=== PATIENT | female | born 1955 | race Caucasian/White ===

== ENCOUNTER 2016-12-20 13:29 | Observation (INO) ==
[2016-12-20] MEDS ORDERED: NS 1,000 ML IV ONE (14:07)
[2016-12-20] MEDS ORDERED: ZOFRAN IV ONE (14:07)
--- NOTE | 2016-12-20 14:34 | Diag Imaging Result Doc PS360 ---
EXAM: CHEST-PORTABLE HISTORY: AMS TECHNIQUE: AP upright portable at 1429 COMMENT: The inspiration is somewhat suboptimal. There is no evidence of acute cardiac or pulmonary disease, and considering the degree of inspiration there is been no significant change since 02/12/2013. IMPRESSION: No acute disease. Electronically signed by Jason Brown 12/20/2016 2:32 PM
[2016-12-20 14:51] LABS: BASO% 0.2 % (0.0-0.8); EOS# 0.03 X1000 (0.0-0.7); EOS% 0.2 % (0.0-10.0); HEMATOCRIT 39.8 % (37.0-47.0); HEMOGLOBIN 13.4 g/dL (12.0-16.0); IMM GRAN# 0.05 X1000 (0.0-0.04); IMM GRAN% 0.3 % (0.0-0.5); LYMPH# 3.68 X1000 (1.2-3.4); LYMPH% 23.5 % (20.5-51.1); MANUAL DIFF NEEDED? NO; MCH 32.4 PG (27-31); MCHC 33.7 g/dL (33-37); MCV 96.4 FL (81-99); MONO# 1.18 X1000 (0.11-0.59); MONO% 7.5 % (1.7-9.3); MPV 8.6 FL (7.4-10.4); NEUT% 68.3 % (42.2-75.2); PLT 443 X1000 (130-400); RBC 4.13 XMIL (4.2-5.4)
[2016-12-20] MEDS ORDERED: ATIVAN IV ONE (14:54)
--- NOTE | 2016-12-20 14:55 | Diag Imaging Result Doc PS360 ---
EXAM: HEAD W/O CONTRAST - 12/20/2016 HISTORY: AMS TECHNIQUE: Dose reduction protocol COMPARISON: 07/21/2015 FINDINGS: There are mild chronic microvascular ischemic changes. There is no evidence of recent infarct, although acute infarcts may not be immediately visible. There is no evidence of intracranial hemorrhage, mass effect, midline shift, or hydrocephalus. There is mild prominence of the occipital horn of the left lateral ventricle which is stable and compatible with chronic change. IMPRESSION: No visible acute intracranial abnormality. No hemorrhage or mass effect. Electronically signed by Tino Nobles 12/20/2016 2:53 PM
[2016-12-20 15:20] LABS: CALCIUM 9.1 mg/dL (8.8-10.2); MAGNESIUM 2.5 mg/dL (1.5-2.7); POTASSIUM 3.5 mmol/L (3.5-5.1); TOTAL BILIRUBIN 0.3 mg/dL (0.20-1.00); TOTAL PROTEIN 7.3 g/dL (6.3-8.3)
[2016-12-20 15:42] LABS: URINE CULTURE NEEDED? NO; URINE MICRO REVIEW NEEDED? NO; URINE SOURCE CATH
[2016-12-20 15:45] LABS: BILIRUBIN URINE SMALL (NEGATIVE); BLOOD URINE NEGATIVE (NEGATIVE); COLOR YELLOW; GLUCOSE URINE NEGATIVE (NEGATIVE); LEUKOCYTES URINE NEGATIVE (NEGATIVE); NITRITE URINE NEGATIVE (NEGATIVE); PH URINE 5.5; PROTEIN URINE 30 mg/dL (NEGATIVE); SP GRAVITY URINE 1.038; TURBIDITY URINE CLEAR (CLEAR); UR EPITHELIAL CELLS <10 /HPF (<10); URINE BACTERIA NEGATIVE /HPF; URINE RBC <10 /HPF (<10); URINE WBC <10 /HPF (<10); UROBILINOGEN URINE 2 mg/dL (NORMAL)
[2016-12-20 15:54] LABS: UR AMPHETAMINES QUAL NONE DETECTED (NONE DETECT); UR BARBITUATES QUAL NONE DETECTED (NONE DETECT); UR BENZODIAZEPIN QUAL NONE DETECTED (NONE DETECT); UR CANNABINOIDS QUAL NONE DETECTED (NONE DETECT); UR COCAINE QUAL NONE DETECTED (NONE DETECT); UR METHADONE QUAL NONE DETECTED (NONE DETECT); UR OPIATES QUAL NONE DETECTED (NONE DETECT); UR OXYCODONE QUAL NONE DETECTED (NONE DETECT); UR PCP QUAL NONE DETECTED (NONE DETECT)
--- NOTE | 2016-12-20 15:54 | EKG Report ---
Test Performed on : 12/20/2016 2:23:23 PM Test Reason : AMS Blood Pressure : / mmHG Vent. Rate : 071 BPM Atrial Rate : 071 BPM P-R Int : 142 ms QRS Dur : 088 ms QT Int : 442 ms P-R-T Axes : 004 -22 044 degrees QTc Int : 480 ms Normal sinus rhythm. Voltage criteria for left ventricular hypertrophy Abnormal ECG No previous ECGs available Unconfirmed Result
--- NOTE | 2016-12-20 15:57 | ED EKG INTERP ---
This chart was entered by Sheyla Harp Scribe, acting as scribe for Delia Guevara MD. EKG Interpretation - EKG Time of EKG reading by physician:: 14:23 EKG Read and Signed by:: Delia Guevara EKG Interpretation (*Must complete 3 of following elements*): Abnormal Rate: 71 Rhythm: nsr [place]: normal QRS: other (voltage criteria for left ventricular hypertrophy) [place] Interval: normal ST Wave: normal This chart was documented by the indicated scribe, (Sheyla Harp Scribe) and accurately reflects the services I performed and decisions made by Ismael holcomb Wenli X, MD, as attested by the provider's signature.
--- NOTE | 2016-12-20 15:59 | PROVIDER DOCUMENTATION ---
This chart was entered by Sheyla Harp Scribe, acting as scribe for Delia Guevara MD. HPI-Female /OB/Breast - General Chief Complaint: Breast Pain Stated Complaint: BREAST PAIN, NOT EATING Time Seen by Provider: 12/20/16 13:48 Source: reports: patient, family Allergies/Adverse Reactions: Patient Allergies Allergy/AdvReac Type Severity Reaction Status Date / Time codeine Allergy HIVES Verified 12/20/16 14:37 Home Medications: Home Medication List Medication Instructions Recorded Confirmed Last Taken Type LISINOpril [Prinivil] 10 mg PO DAILY 02/10/12 07/26/13 07/25/13 21:00 History Alprazolam [Xanax] 0.5 mg PO BID 06/27/13 07/26/13 07/26/13 21:00 History Liraglutide [Victoza] 0.6 mg SUBQ DAILY 06/27/13 07/26/13 07/26/13 07:00 History Ezetimibe [Zetia] 10 mg PO DAILY 07/24/13 07/26/13 07/25/13 07:00 History Gabapentin 300 mg PO HS 07/24/13 07/26/13 07/25/13 21:00 History Amoxicillin/Pot Clavulanate 875 mg PO Q12HR #20 tablet 07/26/13 Unknown Rx [Augmentin] Aspirin 81 mg PO DAILY 07/26/13 07/26/13 07/26/13 07:00 History Cetirizine HCl [Zyrtec] 10 mg PO DAILY #0 tablet 07/26/13 Unknown Rx Fluticasone 50 Mcg Nasal [place] 1 spray CHOCO BID #0 bottle 07/26/13 Unknown Rx [Flonase] Omeprazole [Prilosec] 20 mg PO DAILY@0700 07/26/13 07/26/13 07/26/13 07:00 History Tramadol [Ultram] 50 mg PO BID 07/26/13 07/26/13 07/24/13 History Metronidazole [Flagyl] 500 mg PO TID #56 tablet 01/10/14 Unknown Rx Sulfamethoxazole/Tmp D.s. [Septra 1 each PO BID #28 tablet 01/10/14 Unknown Rx Ds] - History of Present Illness-Female /OB Nature of Presenting Problem: 61 y/o F presents to ED cc of breast pain x 2 days ago. Pt had epsiode of same pain in the past and was told to wear a bra. Pain went away when bra was on. Pt recently stopped wearing bra. Pt is at bedside and also reports having no appetite x 4 days now. states pt stopped xanax x 1 year ago and since mental status has decreased. Pt is no longer coherent and states they have seen serval doctors with no answer. Pt is alert. No abd pain. Does patient report she is ?: No Location of complaint: reports: other (bilat breast) Radiation: reports: none Quality of Pain: reports: aching Severity in ED: reports: mild Onset/Duration: reports: just prior to arrival Timing: reports: still present Context/Activities at Onset: reports: light activity Vaginal Symptoms: reports: no symptoms Vaginal Bleeding Amount: None Urinary Symptoms: reports: no symptoms. denies: dribbling, frequency, hematuria , nocturia, polyuria, urgency Related Symptoms: reports: no symptoms Leakage of Fluid: none Modifying Factors: improves with: nothing Associated Symptoms: reports: chest pain (bilat breast), nausea, vomiting, other (loss of apptite). denies: diarrhea, fatigue, syncope Similar Symptoms Previously?: Yes Recently seen or treated by another doctor?: Yes Review of Systems - Adult - REVIEW OF SYSTEMS - ADULT Constitutional: denies: chills, fever Eyes: denies: blurred vision, double vision Ears, Nose, Mouth & Throat: denies: ear pain, nose pain, loose teeth, throat pain Cardiovascular: reports: other (bialt breast pain). denies: chest pain, irregular heart rate, palpitations Respiratory: denies: cough, pleurisy, shortness of breath, wheezing Gastrointestinal: reports: nausea, vomiting. denies: abdominal pain, diarrhea Genitourinary: denies: discharge, frequency, hesitency, incontinence Musculoskeletal: denies: bone pain, back pain, joint swelling, muscle aches Neurological: reports: other (AMS). denies: dizziness/vertigo, headache/ migraines, seizure Past History - Adult - PAST MEDICAL HISTORY-ADULT Review of Records: reports: Old Records Reviewed, Nursing Assessment Review Major Childhood Illnesses: reports: history unknown Cardiovascular: reports: HTN Respiratory: reports: denies history Gastrointestinal: reports: denies history Obstetrical/Gynecological: reports: denies history Genitourinary: reports: denies history Musculoskeletal: reports: chronic pain (back) Neurological: reports: denies history Psychiatric: reports: denies history Endocrine/Immune: reports: Diabetes Other Conditions: reports: denies history - PRIOR SURGERIES/PROCEDURES Surgical/Procedure History: reports: cholecystectomy - PRIOR HOSPITALIZATIONS Prior Hospitalizations: reports: none - IMMUNIZATION STATUS Childhood Immunizations: See Nurse Assessment Flu Vaccine: See Nurse Assessment - FAMILY HISTORY Family History: reviewed, not pertinent - SOCIAL HISTORY Smoking: quit greater than 1 year Substance Use: none/never, denies Physical Exam-General - PHYSICAL EXAM-ADULT Initial Vital Signs Reviewed: Yes - CONSTITUTIONAL General Appearance: appears well, alert - EYES Eyes: pink conjunctivae - HEAD, EARS, NOSE, MOUTH & THROAT HENMT: normocephalic/atraumatic, moist mucous membranes, normal ENT inspection - NECK Neck: non-tender - RESPIRATORY Respiratory: chest non-tender, lungs clear, normal breath sounds - CARDIOVASCULAR Cardiovascular: normal peripheral pulses, regular rate, rhythm - GASTROINTESTINAL (ABDOMEN) Abdominal Exam: normal bowel sounds, non tender, soft. negative: distended, guarding, rigid, rebound, tenderness - MUSCULOSKELETAL Back Exam: normal inspection, no CVA tenderness, no vertebral tenderness Extremity: normal range of motion, non-tender, normal gait - SKIN Integumentary: normal color, normal turgor, warm/dry - NEUROLOGIC Neurologic: grossly normal, no motor/sensory deficits - PSYCHIATRIC Psych/Mental Status: other (incoherently talking/ recognize person but unsure of where) Progress - PLAN OF CARE/RESULTS Progress/Plan/Lab Results: Vital Signs - 8 hr 12/20/16 13:32 Temperature 98.2 F Pulse Rate 88 Respiratory Rate 20 Blood Pressure 120/67 O2 Sat by Pulse Oximetry 100 Laboratory Results - last 24 hr 12/20/16 12/20/16 12/20/16 14:30 14:30 14:30 WBC RBC Hgb Hct MCV MCH MCHC RDW Std Deviation Plt Count MPV Immature Gran % (Auto) Neut % (Auto) Lymph % (Auto) [place] % (Auto) Eos % (Auto) Baso % (Auto) Immature Gran # (Auto) Neut # (Auto) Lymph # (Auto) [place] # (Auto) Eos # (Auto) Baso # (Auto) D-Dimer 2.19 H Sodium 137 Potassium 3.5 Chloride 101 Carbon Dioxide 17 L Anion Gap 19 BUN 54 H Creatinine 1.5 H Estimated GFR/1.73 m2 35 BUN/Creatinine Ratio 36 Glucose 121 H Calculated Osmolality 290 Calcium 9.1 Magnesium 2.5 Total Bilirubin 0.30 AST 14 ALT 23 Alkaline Phosphatase 53 Creatine Kinase 91 Troponin T Total Protein 7.3 Albumin 4.0 Globulin 3.3 Albumin/Globulin Ratio 1.2 Plasma Lactate Urine Source Urine Color Urine Turbidity Urine pH Ur Specific [place] Urine Protein Ur Glucose (Stick) Ur Ketones (Stick) Urine Blood Urine Nitrite Urine Bilirubin Urobilinogen Dipstick Urine Leukocytes Urine WBC (Auto) Urine RBC (Auto) U Epithel Cells (Auto) Urine Bacteria (Auto) Urine Opiates Screen Ur Oxycodone Screen Ur Methadone, Qual Ur Barbiturates Screen Ur Phencyclidine Scrn Ur Amphetamines Screen U Benzodiazepines Scrn Urine Cocaine Screen U Cannabinoids Screen Plasma/Serum Ethyl Alc 12/20/16 12/20/16 12/20/16 14:30 14:30 14:35 WBC 15.68 H RBC 4.13 L Hgb 13.4 Hct 39.8 MCV 96.4 MCH 32.4 H MCHC 33.7 RDW Std Deviation 13.8 Plt Count 443 H MPV 8.6 Immature Gran % (Auto) 0.3 Neut % (Auto) 68.3 Lymph % (Auto) 23.5 [place] % (Auto) 7.5 Eos % (Auto) 0.2 Baso % (Auto) 0.2 Immature Gran # (Auto) 0.05 H Neut # (Auto) 10.71 H Lymph # (Auto) 3.68 H [place] # (Auto) 1.18 H Eos # (Auto) 0.03 Baso # (Auto) 0.03 D-Dimer Sodium Potassium Chloride Carbon Dioxide Anion Gap BUN Creatinine Estimated GFR/1.73 m2 BUN/Creatinine Ratio Glucose Calculated Osmolality Calcium Magnesium Total Bilirubin AST ALT Alkaline Phosphatase Creatine Kinase Troponin T < 0.010 Total Protein Albumin Globulin Albumin/Globulin Ratio Plasma Lactate 1.1 Urine Source Urine Color Urine Turbidity Urine pH Ur Specific [place] Urine Protein Ur Glucose (Stick) Ur Ketones (Stick) Urine Blood Urine Nitrite Urine Bilirubin Urobilinogen Dipstick Urine Leukocytes Urine WBC (Auto) Urine RBC (Auto) U Epithel Cells (Auto) Urine Bacteria (Auto) Urine Opiates Screen Ur Oxycodone Screen Ur Methadone, Qual Ur Barbiturates Screen Ur Phencyclidine Scrn Ur Amphetamines Screen U Benzodiazepines Scrn Urine Cocaine Screen U Cannabinoids Screen Plasma/Serum Ethyl Alc 12/20/16 12/20/16 15:30 15:30 WBC RBC Hgb Hct MCV MCH MCHC RDW Std Deviation Plt Count MPV Immature Gran % (Auto) Neut % (Auto) Lymph % (Auto) [place] % (Auto) Eos % (Auto) Baso % (Auto) Immature Gran # (Auto) Neut # (Auto) Lymph # (Auto) [place] # (Auto) Eos # (Auto) Baso # (Auto) D-Dimer Sodium Potassium Chloride Carbon Dioxide Anion Gap BUN Creatinine Estimated GFR/1.73 m2 BUN/Creatinine Ratio Glucose Calculated Osmolality Calcium Magnesium Total Bilirubin AST ALT Alkaline Phosphatase Creatine Kinase Troponin T Total Protein Albumin Globulin Albumin/Globulin Ratio Plasma Lactate Urine Source CATH Urine Color YELLOW Urine Turbidity CLEAR Urine pH 5.5 Ur Specific [place] 1.038 Urine Protein 30 A Ur Glucose (Stick) NEGATIVE Ur Ketones (Stick) TRACE A Urine Blood NEGATIVE Urine Nitrite NEGATIVE Urine Bilirubin SMALL A Urobilinogen Dipstick 2 A Urine Leukocytes NEGATIVE Urine WBC (Auto) <10 Urine RBC (Auto) <10 U Epithel Cells (Auto) <10 Urine Bacteria (Auto) NEGATIVE Urine Opiates Screen NONE DETECTED Ur Oxycodone Screen NONE DETECTED Ur Methadone, Qual NONE DETECTED Ur Barbiturates Screen NONE DETECTED Ur Phencyclidine Scrn NONE DETECTED Ur Amphetamines Screen NONE DETECTED U Benzodiazepines Scrn NONE DETECTED Urine Cocaine Screen NONE DETECTED U Cannabinoids Screen NONE DETECTED Plasma/Serum Ethyl Alc Orders Category Date Time Status Cardiac Monitoring DIRECTED Care 12/20/16 14:07 Active Finger Stick Blood Sugar (ED) DIRECTED Care 12/20/16 14:07 Active Saline Loc NOW Care 12/20/16 14:07 Active CHEST-PORTABLE [RAD] Stat Exams 12/20/16 14:07 Completed HEAD W/O CONTRAST [CT] Stat Exams 12/20/16 14:07 Completed LUNG SCAN / VQ [NM] Stat Exams 12/20/16 15:30 Ordered ALCOHOL BLOOD Stat Lab 12/20/16 14:30 Completed CBC WITH ELECTRONIC DIFF [HEME] Stat Lab 12/20/16 14:35 Completed CK PROFILE [SP CHEM] Stat Lab 12/20/16 14:30 Completed COMPREHENSIVE METABOLIC PANEL [CHEM] Stat Lab 12/20/16 14:30 Completed D-DIMER [CHEM] Stat Lab 12/20/16 14:30 Completed LACTATE, PLASMA [CHEM] Stat Lab 12/20/16 14:30 Completed MAGNESIUM [CHEM] Stat Lab 12/20/16 14:30 Completed PROTIME WITH INR [COAG] Stat Lab 12/20/16 14:35 Ordered PTT [COAG] Stat Lab 12/20/16 14:35 Ordered TROPONIN T Stat Lab 12/20/16 14:30 Completed URINALYSIS W/POSS RFLX CULT-1 [URINALYSIS] Stat Lab 12/20/16 15:30 Completed URINE DRUG SCREEN Stat Lab 12/20/16 15:30 Completed 0.9% Sodium Chloride Inj [Ns] 1,000 ml Med 12/20/16 14:07 Discontinued IV 999 mls/hr Lorazepam [Ativan] Med 12/20/16 14:54 Discontinued 1 mg IV NOW ONE Ondansetron [Zofran] Med 12/20/16 14:07 Discontinued 4 mg IV NOW ONE Pulse Oximetry Stat Oth 12/20/16 14:07 Active EKG [EKG] Stat Ther 12/20/16 14:07 Draft US [Venous U/S Bilateral Legs] Stat Ther 12/20/16 15:30 Ordered Result Diagrams: 12/20/16 14:35 12/20/16 14:30 - REASSESSMENT Reassessment #1 Time Reassessed: 15:58 Status: unchanged - CONSULTS/PCP/HOSPITALIST Notification #1 *Consult/PCP/Hospitalist*: Roman/Dr. Lucero Time Discussed: 15:58 Consult Disposition: Will see in ED, Admit Departure - Departure Date of Disposition Decision: 12/20/16 Time of Disposition Decision: 15:58 DIAGNOSIS: Chest pain, Altered mental status Disposition: ADMITTED INPATIENT 09 Certified Medical Emergency: Emergent Condition: Stable Referrals and Follow-Ups: Ekta Leonard CRNP [Primary Care Provider] - - Critical Care Note This patient required my direct & personal management of CC.: No This chart was documented by the indicated scribe, (Sheyla Harp Scribe) and accurately reflects the services I performed and decisions made by me, Delia Guevara MD, as attested by the provider's signature.
[2016-12-20] MEDS ORDERED: HALDOL IV ONE (16:43)
[2016-12-20] MEDS ORDERED: HALDOL ONE (16:45)
[2016-12-20] MEDS ORDERED: ZOFRAN IV PRN (16:56)
[2016-12-20] MEDS ORDERED: NS 1,000 ML IV SCH (16:56)
[2016-12-20] MEDS: ATIVAN IV PRN ×2 (17:08→20:45)
[2016-12-20 17:31] LABS: ALLEN TEST YES; BE -9.9 mmoll (-3.0-3.0); BLOOD TYPE ARTERIAL; DRAW SITE R RADIAL; METHB 0.7 % (0.0-1.5); O2(CT) 15.9 mL/dL (15.0-23.0); PCO2(98.6) 29 mmHg (35-45); PO2(98.6) 81 mmHg (60-100); SAMPLE BLOOD; SAO2 99.6 % (95.0-100.0); THB 11.7 g/dL (11.5-17.4); pH(98.6) 7.32 (7.35-7.45)
[2016-12-20] MEDS: NS 1,000 ML IV SCH ×2 (18:00→23:00)
[2016-12-20 18:35] LABS: ACETAMINOPHEN < 1.2 ug/mL (10-30)
[2016-12-20 19:09] LABS: ACETONE SERUM NEGATIVE (NEGATIVE)
[2016-12-20 19:11] LABS: INR 1.11; PROTIME 11.7 Seconds (9.2-11.7); PTT 28.8 Seconds (22.0-36.0)
[2016-12-21 02:50] LABS: UR CREAT RANDOM 107.3 mg/dL (11-20)
--- NOTE | 2016-12-21 04:06 | HISTORY AND PHYSICAL ---
PCP: Ekta Leonard. CHIEF COMPLAINT: Breast pain. HISTORY OF PRESENT ILLNESS: Ms. Dave is a 61-year-old female with a history of lower chronic back pain on narcotic therapy and hypertension. Patient is unable to give history at this time secondary to her neurologic status. at the bedside is able to answer questions. He reports that she has had a decline in mental status over the past year, and has seen multiple providers, including Neurology in [facility], who have yet to establish a diagnosis for her altered mental status. Patient becomes quite confused and agitated at times. The reports that over the past 4 days, she has not been eating, and brought her in the hospital for that. Apparently, per hospital records, she was also complaining of breast pain, but this is unable to be very verified at this time because the patient is quite agitated, requiring restraints. When we walked into the room, she began pulling out her IV, and stating that she was leaving, but the patient was completely disoriented, unable to give us her name, where she was, the year, or the context of why she was here, she just kept screaming "let me go". A head CT was done in the ER, and it did not show anything acute. Her laboratory data shows leukocytosis, renal insufficiency. A D-dimer of 2.19, and elevated metabolic anion gap acidosis. Toxicology screen is negative. She is now going to be admitted for acute delirium. PAST MEDICAL HISTORY: 1. Mental status decline of unknown origin. 2. Chronic back pain, on narcotic therapy. 3. Questionable narcotic abuse. states that she has been over using her pain medication, and then has abruptly stopped. She was also taking off Xanax abruptly around 1 year ago. 4. Hypertension. PAST SURGICAL HISTORY: Cholecystectomy, partial colectomy secondary to hemorrhoids. SOCIAL HISTORY: The patient quit smoking multiple years ago. There is a question narcotic dependence. reports she does not drink. She is , is at the bedside. FAMILY HISTORY: Noncontributory. REVIEW OF SYSTEMS: Unable to obtain. ALLERGIES: Codeine. HOME MEDICATIONS: Currently being compiled. PHYSICAL EXAMINATION: VITAL SIGNS: Blood pressure is 128/59, heart rate 70, respiratory rate 20, O2 saturation 99% on room air. Temperature is 98.5 degrees. GENERAL: This is a disheveled and acutely delirious 61-year-old female, lying in hospital bed, in soft wrist restraints, in an agitated state. NEUROLOGIC: The patient will not answer questions or follow commands. She is quite agitated. She moves all extremities well. HEENT: Head is atraumatic and normocephalic. Her pupils are equal, round, and reactive to light. Oral mucosa is a bit dry. Trachea is midline. CHEST: Clear to auscultation bilaterally. CV: Regular rate and rhythm. S1-S2 is noted. No murmurs. GI: Soft, nondistended, nontender. Bowel sounds positive. EXTREMITIES: Without edema, clubbing, or cyanosis. Pulses palpable bilaterally. DIAGNOSTIC DATA: Head CT, negative. Chest x-ray does not show anything acute. Lab data: Toxicology screen is negative. WBC 15.6, hemoglobin 13.4, hematocrit 39.8, platelet count is 443. D-dimer 2.19. ABG on room air pH 7..32, CO2 29, O2 81, bicarb 17.2, sodium 137 , potassium 3.5, chloride 101, CO2 17. Anion gap 19. BUN 54, creatinine 1.5, glucose 121. Calcium 9.1, magnesium 2.5. LFTs within normal limits. Ammonia 22. Troponin negative. Albumin 4.0. Lactate 1.1. UA shows 30 protein, trace ketones, small bilirubin, but no infection. ASSESSMENT AND PLAN: 1. Acute delirium: Etiology unclear. Head CT is negative. Toxicology screen is negative. There does not seem to be any nidus of infection, although she does have a white count. Certainly, acute narcotic withdrawal would be on the differential, given the fact that she was abusing, then abruptly stopped. We have consulted Neurology and we will check an MRI in the morning if she is able to lie still. We will also check thyroid function. 2. Leukocytosis: Unclear of the significance. There does not seem to be any nidus of infection. She is not tachycardic or febrile. We will hydrate her and check blood cultures, sputum cultures, and urine cultures. No need for antibiotics at this time. If her acute confusion and delirium continues, we may request a lumbar tap to rule out meningeal infection. 3. Elevated D-dimer. Ventilation/perfusion scan and lower extremity venous Dopplers have been ordered. 4. Metabolic acidosis, high anion gap. We will need to look into this. We have ordered standard labs including acetaminophen, salicylate, and ketone levels. Lactic acid is within normal limits, and she does not have an osmolar gap, which would rule out any alcohol intoxication. She does have some mild renal insufficiency, so we will give her some fluid hydration. 5. Renal insufficiency. We are going to check urine studies. On review of her past creatinines, this seems to be her baseline. We will also check a renal ultrasound in the morning. If no improvement or renal function declines, would consider Renal consultation. 6. Reports of breast pain: A ventilation/perfusion scan has been ordered to rule out pulmonary embolism, and we will continue to trend enzymes. 7. Deep venous thrombosis prophylaxis with Lovenox. 8. Further recommendations to follow. Dictated by YNES Frank for Héctor Jacques MD cc: YNES Frank MD Juliana Cr[facility]
[2016-12-21 05:58] LABS: HEMATOCRIT 35.1 % (37.0-47.0); HEMOGLOBIN 11.4 g/dL (12.0-16.0); MCH 32.5 PG (27-31); MCHC 32.5 g/dL (33-37); MPV 8.4 FL (7.4-10.4); RBC 3.51 XMIL (4.2-5.4)
[2016-12-21 06:19] LABS: POTASSIUM 3.8 mmol/L (3.5-5.1)
[2016-12-21] MEDS: NS 1,000 ML IV SCH (06:47)
--- NOTE | 2016-12-21 08:06 | Diag Imaging Result Doc PS360 ---
EXAM: LUNG SCAN / VQ INDICATION: CP with elevated D-dimer TECHNIQUE: 42.4 mCi of aerosolized technetium 99 DTPA was administered for the ventilation portion of the scan. 5.1 mCi of IV technetium 99 MAA was administered for the perfusion portion of the scan. COMPARISON: None. FINDINGS: There is a small amount of swallowed radiotracer in the lumen of the stomach. No matched or unmatched perfusion defects are appreciated. The ventilation portion of the scan is grossly unremarkable. IMPRESSION: Negative VQ scan. Electronically signed by Zay Weston 12/21/2016 8:04 AM
--- NOTE | 2016-12-21 08:58 | Diag Imaging Result Doc PS360 ---
EXAM: MRI BRAIN W W/O CONTRAST HISTORY: ams TECHNIQUE: Axial, sagittal, and coronal images obtained in multiple sequences. There is quite a bit of motion on the post contrasted axial and coronal images. COMPARISON: None. FINDINGS: No recent infarct. There are minimal microvascular ischemic changes. No hydrocephalus. No mass or midline shift. No enhancing lesion on the post contrasted images. No epidural or subdural fluid collection. There is a small amount of fluid in the right mastoid sinus. No sinus opacification and no air-fluid levels. IMPRESSION: No recent infarct or mass. Electronically signed by Alvin Heck 12/21/2016 8:55 AM
[2016-12-21] MEDS ORDERED: LOVENOX SUBQ SCH (09:00)
[2016-12-21] MEDS: ATIVAN IV PRN (09:24)
[2016-12-21] MEDS ORDERED: 1/2 NS 1,000 ML IV SCH (09:35)
--- NOTE | 2016-12-21 10:20 | Diag Imaging Result Doc PS360 ---
EXAM: US RENAL 2 (RETROPER) COMPLETE HISTORY: renal insufficiency TECHNIQUE: COMPARISON: None. FINDINGS: The right kidney measures 11.2 x 4.6 x 4.7 cm. Normal renal echotexture and cortical thickness. No stone or hydronephrosis. No renal mass. The urinary bladder is distended and appears normal. The left kidney measures 11.7 x 5.3 x 5.7 cm. Normal renal echotexture and cortical thickness. No renal stones or hydronephrosis. No renal mass. IMPRESSION: Normal renal ultrasound. Electronically signed by Alvin Heck 12/21/2016 10:18 AM
[2016-12-21 11:12] VITALS: BP 135/61
--- NOTE | 2016-12-21 16:03 | CONSULTATION ---
DATE OF CONSULTATION: 12/21/2016 Ms. Dave is 61 years old with longstanding dementia. She was admitted yesterday with reported increased delirium. Family reports today that she seemed more withdrawn, not speaking, not eating for the last few days prior to admission. Family noticed some forgetfulness as long as 4 years ago. I initially saw her fifteen months ago. She was clearly demented. She was started on donepezil and tolerated donepezil titration to 10 mg daily. I last saw her eleven months ago and donepezil dose was intended to be increased to 23 mg daily then. I have not heard anything from family since then. at the bedside now is certain she is continuing donepezil as I had prescribed it, but I believe the prescription I prescribed would have before now. says he supervises all medicines but he cannot name them. He reports he has a list at home but he does not have a list here. The hospital record indicates there has been some uncertainty about her medicines. says she stopped the alprazolam abruptly a year or so ago and that she continues off of that. He is certain she has not had other benzodiazepine medicines until this admission. However, he reports there was addition of "nerve pill" which he cannot name a few months ago. Tramadol was also listed in the hospital record but he says she has not had that in a long time. She currently has hydrocodone/ acetaminophen 7.5/325, and she takes one of those 3 times a day every day, supervised by . She has pain clinic followup in [place]. There may be an antidepressant medicine, but he cannot name that. He reports she was advised to stop taking her medicine for blood sugar control. There is no history of recent serious head injury. She has never had diagnosed stroke. She has never used ethanol. Workup this admission includes noncontrast CT showing left posterior horn of the lateral ventricle is more prominent than the right, but that is a chronic finding, unchanged compared to previous scan. Brain MRI this admission is reported to show minimal white matter changes , but nothing focal or acute. Her urine drug screen was all negative this admission, showing no evidence of opiate or of benzodiazepine. Labs showed BUN 54 this admission. Computer record shows BUN ranged from 10-23 over the last year and a half. PHYSICAL EXAMINATION: Vital Signs: Vital signs records show she has been afebrile. Systolic blood pressures have ranged from 110s to 130s. General Appearance: On examination now, she is awake and alert. She seems attentive. She followed some simple commands. She did not follow commands requiring right/left distinction or digit distinction. She had a little bit of speech, which I could understand. She appears cheerful and in no discomfort. Head and neck: Are unremarkable. I could not lye boiler visual field formally, but she did blink with approaching threat from the left and from the right. Extraocular movements are full with spontaneous left and right gaze. Tone is equal in the limbs. She used each limb purposefully. Plantar response is silent bilaterally. Reflexes are absent at the ankles bilaterally. I did not test her gait. She was not attentive to usual sensory testing. IMPRESSION: Global encephalopathy, baseline dementia, recent withdrawn state according to family, declining to talk and declining to eat. I do not have any urgent neurologic suggestion. If we can confirm that she is taking donepezil, we can continue that. Consider adding memantadine and follow as an outpatient. Depending on her other current medications, we might start or change antidepressant medicine. We might consider adding low-dose neuroleptic to see if that helps with her behavior. Again, I do not know what has been her management in the last 11 months and I am not certain about her current home medicines. Thanks for asking me to see Ms. Dave. I will be glad to see her again inpatient or outpatient if needed. cc: Peyton Aguilar III, MD MTDD
--- NOTE | 2016-12-22 14:57 | DISCHARGE SUMMARY ---
ADMISSION DATE: 12/20/2016 DISCHARGE DATE: 12/21/2016 DISCHARGE DIAGNOSES: 1. Global encephalopathy with severe baseline dementia. 2. Leukocytosis. 3. Acute kidney injury. HISTORY OF PRESENT ILLNESS: A 61-year-old female with a history of lower chronic back pain on narcotic therapy, hypertension, and dementia. at the bedside, and he was able to answer all the questions because she was not able to do that during the admission process. He states that this patient started declining in mental status over the past year and has been seen by multiple providers including neurology in [facility] and some of them told him that she has dementia. It looks like he does not understand that this patient has dementia, and he is looking for more options. He states that this patient becomes quite confused and agitated at times. The reports that over the past 4-5 days she has not been eating and basically he brought this patient to the hospital because she was severely dehydrated. We hospitalized this patient. Neurology was consulted. We hydrated this patient as well. Today, I had a large conversation with the , and he states that he has an appointment next week with another neurologist that he does not remember his name, but he does not want to use any other medication, he just wanted hydration for his because she is dehydrated. Today, she seems to be more hydrated and she was able to eat here, so he decided to go home and go to a neurologist as an outpatient. This patient was looking good. Lab work was better. Kidney function was better. So, I think if she continues to eat, she is not going to be dehydrated again. I recommended to follow up as an outpatient with this neurologist. I recommended to start a new medication but he refused that. OBJECTIVE: Vital Signs: Temperature 98.3 degrees, pulse 70, respiratory rate 20, blood pressure 135/61. Oxygen saturation 96% on room air. HEENT: Head normocephalic. No trauma. PERRLA. Neck supple. No JVD. No masses. Central trachea. Chest: Clear to auscultation. No wheezing. No rales. Abdomen is soft, nontender, nondistended. No hepatosplenomegaly. Extremities: No edema. No clubbing. No cyanosis. Neurological: The patient is alert. She is not answering my questions. Every time I ask questions, she started laughing. She moves all 4 extremities. LABORATORY: WBC 12, hemoglobin 11.4, hematocrit 35.1, platelets 315,000. Sodium 141, potassium 3.8, chloride 107, bicarbonate 17. BUN 38, creatinine 1, glucose 103. Calcium 8, troponins negative x3. DISCHARGE MEDICATIONS: This patient will continue with the same medications that she was taking at home which are 1. Tramadol 50 mg p.o. b.i.d. 2. Omeprazole 20 mg p.o. daily. 3. Victoza 0.6 mg subcutaneously daily. 4. Lisinopril 10 mg p.o. daily. 5. Gabapentin 300 mg p.o. at bedtime. 6. Flonase 1 spray b.i.d. as needed. 7. Zetia 10 mg p.o. daily. 8. Cetirizine 10 mg p.o. daily. 9. Aspirin 81 mg p.o. daily. 10. Augmentin 800. cc: Héctor Jacques MD
--- NOTE | 2016-12-24 17:27 | Extremity Venous Study ---
PROCEDURE NAME: Venous U/S Bilateral Legs - 12/20/2016 BILATERAL LOWER EXTREMITY VENOUS DUPLEX AND COLOR FLOW IMAGING STUDY: TECHNIQUE: The study was performed using the GE vivid E9 ultrasound system with 9 L-D transducer. POT ROOM TAPPER: Alem Lowery RVT. REFERRING PHYSICIAN: Dr. Guevara from the Emergency Department. INDICATION: Elevated D-dimer ICD-10 R94.2. FINDINGS: The right common femoral vein and its branches, deep and superficial femoral veins were satisfactorily imaged. They had flow through them and were compressible. Right popliteal vein and the deep veins below the right knee were all compressible and had flow through them superficial veins the right lower extremity were compressible throughout their length. The left common femoral vein and its branches, deep and superficial femoral veins were also satisfactorily imaged. They had flow through them and were compressible. Left popliteal vein and the deep veins below the left knee were all compressible and had flow through them. The superficial veins the left lower extremity were compressible throughout their length. INTERPRETATION: No evidence of acute deep or superficial venous thrombosis of the bilateral lower extremities. cc: Carmen Alan MD
== END 2016-12-21 13:49 | disposition home or self-care (01) ==
LOC: 4N 13:29 → ED 13:29 → 4N 16:55
PROVIDERS: ATTEND Internal Medicine